=== PATIENT | female | born 1990 | race Two or more races ===

== ENCOUNTER 2017-02-27 09:39 | Emergency (ER) | payer MEDICAID | END 2017-02-27 10:05 | disposition left against medical advice (07) | LOC: ER 09:39 | DX: Z76.1 Encounter for health supervision and care of foundling (principal); Z48.02 Encounter for removal of sutures; Z53.21 Procedure and treatment not carried out due to patient leaving prior to being seen by health care provider ==

== ENCOUNTER 2017-02-28 10:07 | Emergency (ER) | payer MEDICAID ==
[~2017-02-28] VITALS: Ht 154.9 cm; Wt 104.3 kg
[2017-02-28 10:18] VITALS: BP 124/77
== END 2017-02-28 11:01 | disposition home or self-care (01) ==
LOC: ER 10:07
DX: S51.811D Laceration without foreign body of right forearm, subsequent encounter (principal); E11.9 Type 2 diabetes mellitus without complications; F17.210 Nicotine dependence, cigarettes, uncomplicated; Z48.02 Encounter for removal of sutures

== ENCOUNTER 2017-04-16 12:16 | Emergency (ER) | payer MEDICAID ==
[~2017-04-16] VITALS: Ht 154.9 cm; Wt 99.8 kg
[2017-04-16 14:27] VITALS: BP 141/89
== END 2017-04-16 14:48 | disposition home or self-care (01) ==
LOC: ER 12:16
DX: J02.9 Acute pharyngitis, unspecified (principal); E11.9 Type 2 diabetes mellitus without complications; F17.210 Nicotine dependence, cigarettes, uncomplicated

== ENCOUNTER 2017-05-14 16:00 | Emergency (ER) | payer MEDICAID ==
[~2017-05-14] VITALS: Ht 154.9 cm; Wt 97.5 kg
[2017-05-14 16:47] VITALS: BP 138/88
== END 2017-05-14 17:43 | disposition home or self-care (01) ==
LOC: ER 16:03
DX: M79.642 Pain in left hand (principal); M79.641 Pain in right hand; E11.9 Type 2 diabetes mellitus without complications; F17.210 Nicotine dependence, cigarettes, uncomplicated